=== PATIENT | male | born 1950 | race Caucasian/White ===

== ENCOUNTER 2022-12-23 20:33 | Emergency (ER) | payer MEDICARE, SELFPAY ==
[2022-12-23] VITALS (7 sets, daily range): BP systolic 112–145; BP diastolic 68–103; PULSE 75–205; RESP 15–18; TEMP 36.2–37.6; O2SAT 96–97; BMI 31.3
--- NOTE | 2022-12-23 | ECG_ITS ---
Test Reason : rapid heart rate Blood Pressure : / mmHG Vent. Rate : 167 BPM Atrial Rate : 167 BPM P-R Int : 144 ms QRS Dur : 072 ms QT Int : 216 ms P-R-T Axes : 000 002 -27 degrees QTc Int : 360 ms Supraventricular tachycardia vs atrial flutter Nonspecific ST abnormality Abnormal ECG When compared with ECG of 23-DEC-2022 20:50, No significant changes seen Referred By: Generic ED Physician Electronically Signed By:Jeremy Lugo
--- NOTE | ~2022-12-23 | XR_ITS ---
EXAMINATION: XR CHEST CLINICAL INFORMATION: Shortness of breath COMPARISON: RIBS and chest 06/15/2010 TECHNIQUE: Frontal view of the chest was obtained. FINDINGS: No significant abnormality is noted involving the heart, lungs, mediastinum, bony thorax or soft tissues. XR/XR chest 1V IMPRESSION: Unremarkable examination.
--- NOTE | 2022-12-23 07:21 | ECG_ITS ---
Test Reason : RAPID HEART RATE Blood Pressure : / mmHG Vent. Rate : 206 BPM Atrial Rate : 000 BPM P-R Int : 000 ms QRS Dur : 068 ms QT Int : 234 ms P-R-T Axes : 000 -14 -68 degrees QTc Int : [address] & T wave abnormality, consider inferior ischemia Abnormal ECG When compared with ECG of 13-MAR-2003 08:57, Vent. rate has increased BY 138 BPM Questionable change in QRS axis Non-specific change in ST segment in Inferior leads T wave inversion now evident in Inferior leads Referred By: Clayton Hu Electronically Signed By:Jeremy Lugo
--- NOTE | 2022-12-23 07:22 | ECG_ITS ---
Test Reason : REPEAT AFTER SVT Blood Pressure : / mmHG Vent. Rate : 083 BPM Atrial Rate : 083 BPM P-R Int : 210 ms QRS Dur : 080 ms QT Int : 318 ms P-R-T Axes : 082 006 010 degrees QTc Int : 373 ms Sinus rhythm with 1st degree A-V block Otherwise normal ECG When compared with ECG of 23-DEC-2022 21:02, [place] interval has increased Vent. rate has decreased BY 84 BPM Referred By: Clayton Hu Electronically Signed By:Jeremy Lugo
--- NOTE | 2022-12-23 20:58 | ED_ITS ---
HPI - Arrhythmia/Palpitations General Chief Complaint: General Medical Stated Complaint: Trouble urinating/abd pain Time Seen by Provider: 12/23/22 20:58 Source: patient Mode of arrival: ambulatory Limitations: no limitations History of Present Illness HPI narrative: Patient's history of BPH, appendix cancer status post right colectomy comes here as since last night urinating less and since 08:00 very minimal only few drops on arrival patient heart rate noticed to be in 205 narrow complex tachycardia patient does not feel palpitation no shortness of breath no chest pain feels pressure in lower abdomen. No fever no chills no shortness of breath no dizziness or syncope Related Data Home Medications Medication Instructions Recorded Confirmed aspirin 81 mg tablet,delayed 81 mg PO DAILY 09/30/21 09/30/21 release (Adult Low Dose Aspirin) Previous Rx's Medication Instructions Recorded tamsulosin 0.4 mg capsule (Flomax) 0.4 mg PO BEDTIME #30 caps 12/23/22 Allergies Allergy/AdvReac Type Severity Reaction Status Date / Time Erythromycin Allergy Mild rash Uncoded 12/23/22 20:58 Review of Systems Review of Systems: Yes all other systems are reviewed and are negative [facility] Social History Social History Housing: Condominium Alcohol intake: never Patient Tobacco Use Status: Never used Tobacco Smoked in Last 30 Days: No Use of substances other than those prescribed or required for medical reasons: No Advance Directives: No Advance Directives Information Provided: Yes Current occupational status: employed and retired Physical Exam Vital Signs: Vital Signs: Last Vital Signs Temp 98.9 F 12/23/22 23:21 Pulse 85 12/23/22 23:21 Resp 16 12/23/22 23:21 BP 112/69 12/23/22 23:21 Pulse Ox 97 12/23/22 23:21 O2 Del Method Room Air 12/23/22 23:21 BMI result Body Mass Index 31.3 Appearance: Alert. Oriented X3. No acute distress. Eyes: PERRLA, No Nystagmus ENT: Pharynx normal. Oral Mucosa moist Neck: Normal inspection. Neck supple. CVS: Tachycardic regular rhythm. Pulses normal. Respiratory: No respiratory distress. Equal air entry bilateral, no wheezing/rales/rhonchi Abdomen: Soft mild suprapubic discomfort, Bowel sounds are present, no mass palpable, no CVA tenderness Skin: Skin warm and dry. Normal skin color. Normal skin turgor. Extremities: No lower extremity edema. No calf tenderness Neuro: Oriented X 3. No motor deficit. No sensory deficit.No cerebellar signs , cranial nerves II-XII intact Medications Administered Discontinued Medications Generic Name Dose Route Start Last Admin Trade Name Freq PRN Reason Stop Dose Admin Diltiazem HCl 20 mg 12/23/22 21:12 12/23/22 21:20 Diltiazem Hcl 50 Mg/10 Ml Vial IVPUSH 12/23/22 21:13 20 mg STAT STA Administration Sodium Chloride 1,000 mls @ 999 mls/hr 12/23/22 20:59 12/23/22 22:29 Ns IV 12/23/22 21:59 Infused .Q1H1M ONE Infusion Metoprolol Tartrate 5 mg 12/23/22 20:58 12/23/22 21:09 Metoprolol Tartrate 5 Mg/5 Ml Vial IVPUSH 12/23/22 20:59 5 mg ONCE ONE Administration Tamsulosin HCl 0.4 mg 12/23/22 22:59 12/23/22 23:24 Tamsulosin Hcl 0.4 Mg Capsule PO 12/23/22 23:00 0.4 mg ONCE ONE Administration Medical Decision Making Medical Decision Making [facility] Narrative: Patient with acute no retention bladder scan showed 450 cc urine only. In cidentally noticed to be in tachycardia narrow complex thought to be atrial flutter with one-to-one conduction was narrow complex tachycardia partial response to Lopressor then Cardizem 20 mg was given and broke into normal sinus rhythm. Lab Data [facility] Lab Attestation statement: I reviewed the patient's lab results. 12/23/22 21:01 12/23/22 21:01 Labs: Lab Results 12/23/22 12/23/22 12/23/22 Range/Units 21:01 21:01 21:01 WBC 14.6 H (4.8-10.8) X10*3/uL RBC 6.27 H (4.60-5.80) X10*6/uL Hgb 18.9 H (14.0-18.0) g/dl Hct 54.3 H (42.0-52.0) % MCV 86.6 (80.0-98.0) fL MCH 30.1 (27.0-33.0) pg MCHC 34.8 (31.0-36.0) g/dl RDW 12.7 (11.0-16.0) % Plt Count 297 (160-400) X10*3/uL MPV 8.7 L (9.4-12.4) fL Immature Gran % (Auto) 0.3 (0.0-0.4) % Neut % (Auto) 74.3 H (45-73) % Lymph % (Auto) 15.5 L (20-40) % [place]ro % (Auto) 7.9 (2-11) % Eos % (Auto) 1.5 (0-4) % Baso % (Auto) 0.5 (0-2) % Lymph # (Auto) 2.3 (1.2-4.9) X10*3/uL [place] # (Auto) 1.2 (0.1-1.2) X10*3/uL Eos # (Auto) 0.2 (0.0-0.4) X10*3/uL Baso # (Auto) 0.1 (0.0-0.2) X10*3/uL Abs Immat Gran (auto) 0.05 H (0.00-0.03) X10*3/uL Absolute Neuts (auto) 10.8 H (2.0-8.3) x10*3/uL Absolute Nucleated RBC 0.000 (0.0-0.012) X10*3/uL Nucleated RBC % (auto) 0.0 (0.0-0.2) /100WBC PT 10.6 (10.0-13.1) SEC INR 0.9 (0.9-1.1) Sodium 140 (135-145) mmol/L Potassium 4.4 (3.3-5.1) mmol/L Chloride 107 (96-108) mmol/L Carbon Dioxide 23 (22-29) mmol/L Anion Gap 14 (12-20) BUN 17 H (9-16) mg/dL Creatinine 1.44 H (0.5-1.4) mg/dL Estim Creat Clear Calc 50.5 Estimated GFR 48 Random Glucose 135 H (60-115) mg/dL Calcium 10.3 H (8.4-10.2) mg/dL Magnesium 1.9 (1.6-2.6) mg/dL Total Bilirubin 1.0 (0.0-1.0) mg/dL AST 20 (5-37) U/L ALT 27 (0-40) U/L Alkaline Phosphatase 61 (39-117) U/L Troponin I High Sens (<3.5-35.0) ng/L B-Natriuretic Peptide (<100) pg/mL Total Protein 7.7 (6.5-8.0) g/dL Albumin 4.7 (3.5-5.0) g/dL 12/23/22 12/23/22 Range/Units 21:01 21:01 WBC (4.8-10.8) X10*3/uL RBC (4.60-5.80) X10*6/uL Hgb (14.0-18.0) g/dl Hct (42.0-52.0) % MCV (80.0-98.0) fL MCH (27.0-33.0) pg MCHC (31.0-36.0) g/dl RDW (11.0-16.0) % Plt Count (160-400) X10*3/uL MPV (9.4-12.4) fL Immature Gran % (Auto) (0.0-0.4) % Neut % (Auto) (45-73) % Lymph % (Auto) (20-40) % [place] % (Auto) (2-11) % Eos % (Auto) (0-4) % Baso % (Auto) (0-2) % Lymph # (Auto) (1.2-4.9) X10*3/uL [place] # (Auto) (0.1-1.2) X10*3/uL Eos # (Auto) (0.0-0.4) X10*3/uL Baso # (Auto) (0.0-0.2) X10*3/uL Abs Immat Gran (auto) (0.00-0.03) X10*3/uL Absolute Neuts (auto) (2.0-8.3) x10*3/uL Absolute Nucleated RBC (0.0-0.012) X10*3/uL Nucleated RBC % (auto) (0.0-0.2) /100WBC PT (10.0-13.1) SEC INR (0.9-1.1) Sodium (135-145) mmol/L Potassium (3.3-5.1) mmol/L Chloride (96-108) mmol/L Carbon Dioxide (22-29) mmol/L Anion Gap (12-20) BUN (9-16) mg/dL Creatinine (0.5-1.4) mg/dL Estim Creat Clear Calc Estimated GFR Random Glucose (60-115) mg/dL Calcium (8.4-10.2) mg/dL Magnesium (1.6-2.6) mg/dL Total Bilirubin (0.0-1.0) mg/dL AST (5-37) U/L ALT (0-40) U/L Alkaline Phosphatase (39-117) U/L Troponin I High Sens 17.7 (<3.5-35.0) ng/L B-Natriuretic Peptide 124 H (<100) pg/mL Total Protein (6.5-8.0) g/dL Albumin (3.5-5.0) g/dL Independent Interpretation I performed an independent interpretation of an: EKG Interpretation: Narrow complex tachycardia with heart rate [address] wave changes no acute Ischemia Discharge Plan Discharge Clinical Impression: Acute urinary retention, Supraventricular tachycardia Patient Disposition: Home, Self-Care Instructions: Supraventricular Tachycardia (ED), Urinary Retention in Men (ED), Lyons Catheter Placement and Care (ED) Additional Instructions: Lyons catheter care as advised Take Flomax daily and follow with urologist You had palpitation etiology not very clear follow with cardiology/PCP for further evaluation Prescriptions: New tamsulosin [Flomax] 0.4 mg capsule 0.4 mg PO BEDTIME Qty: 30 0RF No Action aspirin [Adult Low Dose Aspirin] 81 mg tablet,delayed release (DR/EC) 81 mg PO DAILY Referrals: Albert Mott MD [Physician] - 1 week Richard Snyder MD [Physician] - 1 week Interventions: ED Discharge Assessment Last Done: 12/23/22 23:37 Discharge Date/Time: 12/23/22 23:41
[2022-12-23 21:06] LABS: MANUAL DIFF FLAG NO
[2022-12-23 21:08] LABS: Basophils Absolute Auto 0.1 X10*3/uL (0.0-0.2); Basophils Percent Auto 0.5 % (0-2); Eosinophils Absolute Auto 0.2 X10*3/uL (0.0-0.4); Eosinophils Percent Auto 1.5 % (0-4); Hematocrit 54.3 % (42.0-52.0); Hemoglobin 18.9 g/dl (14.0-18.0); Imm Gran Abs Auto 0.05 X10*3/uL (0.00-0.03); Imm Gran Pct Auto 0.3 % (0.0-0.4); Lymphocytes Absolute Auto 2.3 X10*3/uL (1.2-4.9); Lymphocytes Percent Auto 15.5 % (20-40); Mean Corpuscular HGB Conc 34.8 g/dl (31.0-36.0); Mean Corpuscular Hemoglobin 30.1 pg (27.0-33.0); Mean Corpuscular Volume 86.6 fL (80.0-98.0); Mean Platelet Volume 8.7 fL (9.4-12.4); Monocytes Absolute Auto 1.2 X10*3/uL (0.1-1.2); Monocytes Percent Auto 7.9 % (2-11); Neutrophils Absolute Auto 10.8 x10*3/uL (2.0-8.3); Neutrophils Percent Auto 74.3 % (45-73); Platelet Count 297 X10*3/uL (160-400); Red Blood Count 6.27 X10*6/uL (4.60-5.80); Red Cell Distribution Width 12.7 % (11.0-16.0); White Blood Count 14.6 X10*3/uL (4.8-10.8)
[2022-12-23] MEDS: Metoprolol Tartrate 5 MG/5 ML VIAL IVPUSH (21:09)
[2022-12-23] MEDS: 0.9 % Sodium Chloride 1,000 ML 999 ML IV (21:09)
--- NOTE | 2022-12-23 21:09 | PC.NURSE ---
pt denies cp, sob, dizziness. cardizem 20mg admnisted, pt returned to NSR in 80s
[2022-12-23 21:13] LABS: INTERNATIONAL NORM RATIO 0.9 (0.9-1.1); Prothrombin Time 10.6 SEC (10.0-13.1)
[2022-12-23] MEDS: dilTIAZem HCL 50 MG/10 ML VIAL 20 MG IVPUSH (21:20)
--- NOTE | 2022-12-23 21:20 | MHC.EDTECH ---
PATIENT CAME IN FROM TRIAGE ,PATIENT WAS HOOKED UP TO CLINICAL PRACTICE CONSULTANT ,EKG TAKEN AND WAS READ BY PROVIDER ,VITALS SIGN TAKEN AND BLADDER SCAN DONE ,PATIENT IS IN [employer] FAMILY MEMBER AT BEDSIDE .
[2022-12-23 21:27] LABS: Alanine Aminotransferase 27 U/L (0-40); Albumin Level 4.7 g/dL (3.5-5.0); Alkaline Phosphatase 61 U/L (39-117); Anion Gap 14 (12-20); Aspartate Amino Transferase 20 U/L (5-37); Blood Urea Nitrogen 17 mg/dL (9-16); Calcium 10.3 mg/dL (8.4-10.2); Carbon Dioxide 23 mmol/L (22-29); Chloride 107 mmol/L (96-108); Creatinine Clr Calc Pharmacy 50.5; Estimated Glomerular Filt Rate 48; Glucose Random 135 mg/dL (60-115); Magnesium 1.9 mg/dL (1.6-2.6); Potassium 4.4 mmol/L (3.3-5.1); Sodium 140 mmol/L (135-145); Total Protein 7.7 g/dL (6.5-8.0)
[2022-12-23 21:33] LABS: B Type Natriuretic Peptide 124 pg/mL (<100)
[2022-12-23 21:35] LABS: Troponin-I High Sensitivity 17.7 ng/L (<3.5-35.0)
[2022-12-23] MEDS: Tamsulosin HCL 0.4 MG CAPSULE PO (23:24)
== END 2022-12-23 23:41 | disposition home or self-care (01) ==
PROVIDERS: Emergency Provider Internal Medicine; PCP Internal Medicine
DX: R33.9 Retention of urine, unspecified (principal); I47.1 Supraventricular tachycardia
CPT/HCPCS: 36415; 51702; 51798; 71045; 80053; 83735; 83880; 84484; 85025; 85610; 93005; 96361; 96374; 96375; 99285

== ENCOUNTER → 2022-12-30 09:26 | Outpatient (BNVA) | payer MEDICARE, SELFPAY | PROVIDERS: PCP Internal Medicine; Visit Provider Urology | DX: N40.1 Benign prostatic hyperplasia with lower urinary tract symptoms (principal); R33.8 Other retention of urine; N32.0 Bladder-neck obstruction; R39.12 Poor urinary stream | CPT/HCPCS: 51700; 51798; 99202 ==

== ENCOUNTER 2023-02-15 08:21 | Outpatient (AMB) | payer MEDICARE, SELFPAY ==
--- NOTE | 2023-02-15 08:35 | MHC.OFFVIS ---
Intake Intake Visit Reasons: 6W PVR Intake Note: Patient is present for PVR/ Urology Med: Finasteride, Tamsulosin Antibiotic Allergy: Erythromycin Blood Thinner: Aspirin PVR: 32ml Patient states that he is doing very well on both Finasteride, tamsulosin. Patient only gets up once during the night some nights. Allergies Erythromycin Allergy (Mild, Uncoded 02/15/23 08:35) rash Medication List - Last Reconciled 02/15/23 by Albert Mott MD aspirin (Adult Low Dose Aspirin) 81 mg PO DAILY finasteride 5 mg PO DAILY 90 days tamsulosin (Flomax) 0.4 mg PO BEDTIME 90 days HPI HPI Comments History of Present Illness Details Laz is a pleasant male. He is a patient Dr. Philip. He seen for the following urologic conditions - urinary retention - lower urinary tract symptoms Post voiding trial 32 cc Lower urinary tract symptoms 12/28 episode of urinary retention with 450 cc Prior history of difficulty urinating following surgery Current medications - tamsulosin, finasteride Therapeutic plan - 6m f/u PVR and PSA PFSH Medical History History of malignant neoplasm of appendix Social History Housing: Condominium Alcohol intake: never Patient Tobacco Use Status: Never used Tobacco Current occupational status: employed and retired Review of Systems Const Denies chills and Denies fever(s) Card Reports no additional complaints and Denies syncope Resp Denies cough GI Denies abdominal pain and Denies heartburn Reports as per HPI and Denies change in libido Neuro Denies syncope Psych Denies change in libido Endo Denies change in libido Physical Exam Const General: cooperative, healthy appearing, comfortable and no acute distress Orientation/consciousness: patient oriented x3 HEENT Face and sinus: Yes normal facial exam Mouth: moist mucous membranes Neck Neck: Yes normal visual inspection, Yes full ROM and Yes trachea midline Chest Chest palpation & inspection: normal inspection of the chest Resp Effort & Inspection: normal respiratory effort, able to speak in complete sentences and no respiratory distress GI Inspection: Yes normal to inspection Back/Spine/Pelvis Cervical Spine: normal cervical lordosis Thoracic/Lumbar Spine: thoracic and lumbar spine normal to inspection Skin General skin exam: no rashes or lesions noted Neuro General: patient oriented x3, gait normal, tone normal and moves all extremities Extrem General: Yes normal to inspection and Yes capillary refill normal Office Procedures Post Void Residual Post Residual Void Post Void Residual (PVR): 32 11133-Ujca Void Residual by ultrasound Results AMB Urinalysis, Automated UA Leukoctes 0 Bebeto/uL Last Edit by Kaur Posada [facility] on 02/15/23 08:42 UA Nitrite Negative Last Edit by Kaur Posada [facility] on 02/15/23 08:42 UA Urobilinogen 0.2 mg/dL Last Edit by Kaur Posada A on 02/15/23 08:42 UA Protein 0 mg/dL Last Edit by Kaur Posada A on 02/15/23 08:42 UA pH 6.0 Last Edit by Kaur Posada [facility] on 02/15/23 08:42 UA Blood 0 Kwabena/uL Last Edit by Kaur Posada [facility] on 02/15/23 08:42 UA Specific [place] 1.020 Last Edit by Kaur Posada [facility] on 02/15/23 08:42 UA Ketone Negative Last Edit by Kaur Posada A on 02/15/23 08:42 UA Bilirubin 0 mg/dL Last Edit by Kaur Posada [facility] on 02/15/23 08:42 UA Glucose 100 mg/dL Last Edit by Kaur Posada A on 02/15/23 08:42 Results Reviewed Results Reviewed: Laboratory Last Values Urine pH (Auto) 6.0 02/15/23 08:36 Specific [place] (Auto) 1.020 02/15/23 08:36 Urine Protein (Auto) 0 mg/dL 02/15/23 08:36 Glucose (UA)(Auto) 100 mg/dL 02/15/23 08:36 Urine Ketones (Auto) Negative 02/15/23 08:36 Urine Blood (Auto) 0 Kwabena/uL 02/15/23 08:36 Urine Nitrite (Auto) Negative 02/15/23 08:36 Urine Bilirubin (Auto) 0 mg/dL 02/15/23 08:36 Urine Urobilinogen (Auto) 0.2 mg/dL 02/15/23 08:36 Leukocyte Esterase (Auto) 0 Bebeto/uL 02/15/23 08:36 Assessment & Plan Assessment & Plan (1) Weak urinary stream: Code(s): R39.12 - Poor urinary stream (2) Bladder outlet obstruction: Code(s): N32.0 - Bladder-neck obstruction Plan 6m f/u Orders: Orders Prostate Specific Antigen 6 Months N32.0 - Bladder-neck obstruction AMB Urinalysis Automated Today N40.1 - Benign prostatic hyperplasia with lower urinary tract symptoms, R33.8 - Other retention of urine, Z13.9 - Encounter for screening, unspecified AMB Post Void Residual by ultrasound Today N40.1 - Benign prostatic hyperplasia with lower urinary tract symptoms, R33.8 - Other retention of urine Patient Instructions: Imaging studies, laboratory and physical exam results were discussed and reviewed in detail. No major barriers to patient understanding were identified. An opportunity to ask questions regarding the treatment plan was provided. All questions were answered. The patient expressed understanding and agreement with the above treatment plan. The patient is aware they should contact our office by phone for worsening of their current condition or the appearance of new urologic symptoms. Compliance is encouraged with any medications and followup testing that is ordered. It is a privilege to participate in the urologic care of your patient. If you have any questions or concerns regarding treatment for the above conditions, or other urologic issues, please do not hesitate to contact me. The office telephone contact is [phone]. This note is constructed using voice recognition software. While every effort has been made to ensure accuracy electricians top helper errors may have been included. Yours sincerely, Dr Albert Mott MD, [place] - Urology Providers of Expert, Compassionate Care for the Genitourinary System Coding Level of Care Code Est Pt Level 3 (27654) Diagnoses Weak urinary stream R39.12 Bladder outlet obstruction N32.0 CPT Codes Post Residual Void - PVR CPT Code: 40298-Rzgi Void Residual by ultrasound ([id number])
== END 2023-02-15 09:21 | disposition home or self-care (01) ==
PROVIDERS: Visit Provider Urology
DX: R39.12 Poor urinary stream (principal); N32.0 Bladder-neck obstruction
CPT/HCPCS: 99213

== ENCOUNTER → 2023-02-15 08:21 | Outpatient (BNVA) | payer MEDICARE, SELFPAY | PROVIDERS: Visit Provider Urology | DX: N40.1 Benign prostatic hyperplasia with lower urinary tract symptoms (principal); R39.15 Urgency of urination; R33.8 Other retention of urine | CPT/HCPCS: 51798; 99212 ==

== ENCOUNTER 2023-12-29 08:26 | Outpatient (REF) | payer MEDICARE, SELFPAY ==
[2023-12-29 11:01] LABS: Prostate Specific Antigen 2.75 ng/mL (<0.05-4.0)
== END 2023-12-29 08:27 | disposition home or self-care (01) ==
LOC: HO.HMGCLDS 08:26
PROVIDERS: PCP Internal Medicine; Visit Provider Urology
DX: N32.0 Bladder-neck obstruction (principal); Z12.5 Encounter for screening for malignant neoplasm of prostate
CPT/HCPCS: 36415; 84153

== ENCOUNTER 2024-07-16 07:07 | Outpatient (REF) | payer MEDICARE, SELFPAY ==
[2024-07-16 11:13] LABS: Prostate Specific Antigen 2.79 ng/mL (<0.05-4.0)
--- OUTSIDE RECORDS SUMMARY | 2024-07-18 12:37 | XMS_ITS | Patient Health Record ---
Author Organization [facility] Address [address] [place] [id number] Care Team Providers Care Shear Tender Name Role Phone [place] Primary [facility] Provider Michael Stevens [phone] ALLERGIES Allergen (clinical drug ingredient) Drug/Non Drug Allergy documented on EMR Reaction Allergy Type Onset Date Status erythromycin Erythromycin (uncoded) Unknown Allergy Active REASON FOR REFERRAL No Information MEDICATIONS Medication SIG (Take, Route, Fr equency, Duration) Notes Start Date End Date Status Baby Aspirin Active MoviPrep 100 GM as directed Orally once for 1 dose 04/11/2012 Active SOCIAL HISTORY Sex Assigned At : Social History Observation Description Sex Assigned At Unknown PROBLEMS Problem Type ICD Code Onset Dates Problem Status W/U Status Risk SNOMED Code Notes Problem Colon cancer screening (V76.51) Active confirmed Colon cancer screening ([id number]) PLAN OF TREATMENT Future Test Test Name Order Date COLONOSCOPY 04/11/2012 Insurance Providers Payer Name Payer Address Payer Phone Subscriber Number Group Number Insured Name Patient Relationship to Insured Coverage Start Date Coverage End Date MEDICARE OF [employer] [address] [place] [id number] [id number] TRUDISUN Self - patient is the insured MEDICAL (GENERAL) HISTORY Medical History History ICD Code 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 Right Colectomy as above
== END 2024-07-16 07:08 | disposition home or self-care (01) ==
LOC: HO.HMGCLDS 07:07
PROVIDERS: PCP Internal Medicine; Visit Provider Urology
DX: Z12.5 Encounter for screening for malignant neoplasm of prostate (principal)
CPT/HCPCS: 36415; 84153

== ENCOUNTER 2024-08-30 08:34 | Outpatient (AMB) | payer MEDICARE, SELFPAY ==
--- NOTE | 2024-08-30 08:57 | MHC.OFFVIS ---
Intake Visit Reasons: PSA/PVR(set) Intake Note: Patient is present for PSAPVR Urology Medication:TAMSULOSIN,FINASTERIDE Antibiotic Allergy:ERYTHROMYCIN Blood Thinner:ASPIRIN Last PVR:32ML'S Todays PVR:0ML'S Application Specialist Required: No Allergies Erythromycin Allergy (Mild, Uncoded 08/30/24 08:58) rash HPI Comments Details: Laz is a pleasant male. He is a patient Dr. Dia. 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 [employer] Lower urinary tract symptoms 12/28 episode of urinary retention with 450 cc Prior history of difficulty urinating following surgery Current medications - tamsulosin, finasteride PSA 07/31 2.8 Therapeutic plan - 12 month follow-up PVR with uroflow [facility] Medical History History of malignant neoplasm of appendix Social History Housing: Condominium Alcohol intake: never Patient Tobacco Use Status: Never used Tobacco Current occupational status: employed and retired Review of Systems Const Denies chills and Denies fever(s) Card Reports no additional complaints and Denies syncope Resp Denies cough GI Denies abdominal pain and Denies heartburn Reports as per HPI and Denies change in libido Neuro Denies syncope Psych Denies change in libido Endo Denies change in libido Physical Exam Const General: cooperative, healthy appearing, comfortable and no acute distress Orientation/consciousness: patient oriented x3 HEENT Face and sinus: Yes normal facial exam Mouth: moist mucous membranes Neck Neck: Yes normal visual inspection, Yes full ROM and Yes trachea midline Chest Chest palpation & inspection: normal inspection of the chest Resp Effort & Inspection: normal respiratory effort, able to speak in complete sentences and no respiratory distress GI Inspection: Yes normal to inspection Back/Spine/Pelvis Cervical Spine: normal cervical lordosis Thoracic/Lumbar Spine: thoracic and lumbar spine normal to inspection Skin General skin exam: no rashes or lesions noted Neuro General: patient oriented x3, gait normal, tone normal and moves all extremities Extrem General: Yes normal to inspection and Yes capillary refill normal Office Procedures Post Void Residual Post Residual Void Post Void Residual (PVR): 0 50982-Ftti Void Residual by ultrasound Results AMB Urinalysis, Automated UA Leukoctes 0 Bebeto/uL Last Edit by ELVIS Parkinson on 08/30/24 09:19 UA Nitrite Negative Last Edit by Sherman Fuchs [facility] on 08/30/24 09:19 UA Urobilinogen 0.2 mg/dL Last Edit by ELVIS Parkinson on 08/30/24 09:19 UA Protein 0 mg/dL Last Edit by Sherman Fuchs [facility] on 08/30/24 09:19 UA pH 6.0 Last Edit by Sherman Fuchs [facility] on 08/30/24 09:19 UA Blood 0 Kwabena/uL Last Edit by Sherman Fcuhs [facility] on 08/30/24 09:19 UA Specific [place] 1.030 Last Edit by Sherman Fuchs [facility] on 08/30/24 09:19 UA Ketone Negative Last Edit by Sherman Fuchs [facility] on 08/30/24 09:19 UA Bilirubin 0 mg/dL Last Edit by Sherman Fuchs [facility] on 08/30/24 09:19 UA Glucose 0 mg/dL Last Edit by Sherman Fuchs [facility] on 08/30/24 09:19 Results Reviewed Results Reviewed: Laboratory Last Values Urine pH (Auto) 6.0 08/30/24 09:18 Specific [place] (Auto) 1.030 08/30/24 09:18 Urine Protein (Auto) 0 mg/dL 08/30/24 09:18 Glucose (UA)(Auto) 0 mg/dL 08/30/24 09:18 Urine Ketones (Auto) Negative 08/30/24 09:18 Urine Blood (Auto) 0 Kwabena/uL 08/30/24 09:18 Urine Nitrite (Auto) Negative 08/30/24 09:18 Urine Bilirubin (Auto) 0 mg/dL 08/30/24 09:18 Urine Urobilinogen (Auto) 0.2 mg/dL 08/30/24 09:18 Leukocyte Esterase (Auto) 0 Bebeto/uL 08/30/24 09:18 Assessment & Plan Assessment & Plan (1) Urinary retention due to benign prostatic hyperplasia: Code(s): N40.1 - Benign prostatic hyperplasia with lower urinary tract symptoms; R33.8 - Other retention of urine Category: Medical (2) Bladder outlet obstruction: Code(s): N32.0 - Bladder-neck obstruction Category: Medical Plan One year follow-up bladder ultrasound, uroflow PSA Orders: Orders Prostate Specific Antigen 364 Days N32.0 - Bladder-neck obstruction AMB Urinalysis Automated Today Z13.9 - Encounter for screening, unspecified US bladder 1 Year N32.0 - Bladder-neck obstruction, R39.12 - Poor urinary stream Patient Instructions: Imaging studies, laboratory and physical exam results were discussed and reviewed in detail. No major barriers to patient understanding were identified. An opportunity to ask questions regarding the treatment plan was provided. All questions were answered. The patient expressed understanding and agreement with the above treatment plan. The patient is aware they should contact our office by phone for worsening of their current condition or the appearance of new urologic symptoms. Compliance is encouraged with any medications and followup testing that is ordered. It is a privilege to participate in the urologic care of your patient. If you have any questions or concerns regarding treatment for the above conditions, or other urologic issues, please do not hesitate to contact me. The office telephone contact is [phone]. This note is constructed using voice recognition software. While every effort has been made to ensure accuracy psychology assistant errors may have been included. Yours sincerely, Dr Albert Mott MD, [place] - Urology Providers of Expert, Compassionate Care for the Genitourinary System Coding Level of Care Code Est Pt Level 3 (35015) Diagnoses Urinary retention due to benign prostatic hyperplasia N40.1; R33.8 Bladder outlet obstruction N32.0 CPT Codes Post Residual Void - PVR CPT Code: 35744-Plhf Void Residual by ultrasound ([id number])
== END 2024-08-30 09:45 | disposition home or self-care (01) ==
PROVIDERS: PCP Internal Medicine; Visit Provider Urology
DX: N40.1 Benign prostatic hyperplasia with lower urinary tract symptoms (principal); R33.8 Other retention of urine; N32.0 Bladder-neck obstruction; Z13.9 Encounter for screening, unspecified
CPT/HCPCS: 99213

== ENCOUNTER → 2024-08-30 08:34 | Outpatient (BNVA) | payer MEDICARE, SELFPAY | PROVIDERS: PCP Internal Medicine; Visit Provider Urology | DX: N40.1 Benign prostatic hyperplasia with lower urinary tract symptoms (principal); R33.8 Other retention of urine; N32.0 Bladder-neck obstruction; R39.12 Poor urinary stream; Z79.899 Other long term (current) drug therapy | CPT/HCPCS: 51798; 81003; 99212 ==